=== PATIENT | male | born 1955 | race Caucasian/White ===

== ENCOUNTER 2017-05-04 10:25 | Inpatient (IN) | payer OTHER ==
[~2017-05-04] VITALS: Ht 182.9 cm; Wt 120.5 kg
[~2017-05-04 10:25] MED LIST: AMLODIPINE BES2.5 M1; ASPIR 8181 MG; BENAZEPRIL10 M1; GLUCOPHAGE1000 MG; LANTUS SOLOS100 U/M1; METP PO; NORVASC2.5 MG PO; PRILOSEC2.5 MG/Pa1 PO
[2017-05-04 11:06] LABS: BASOPHIL % 0.4 % (0-2); PLATELET COUNT 210 x10^3mcL (130-400); RED CELL DISTRIBUTION WIDTH 14.4 % (11.5-14.5)
[2017-05-04 11:14] LABS: CALCIUM 9.3 mg/dL (8.5-10.1); CARBON DIOXIDE 34.3 mmol/L (21-32); CHLORIDE SERUM 102 mmol/L (98-107); CREATININE SERUM 1.1 mg/dL (0.7-1.3); GFR1 > 60 mL/min; GLUCOSE SERUM 167 mg/dL (74-106); POTASSIUM SERUM 3.8 mmol/L (3.5-5.1); SODIUM SERUM 140 mmol/L (136-145)
[2017-05-04 11:19] LABS: ALBUMIN 3.6 g/dL (3.4-5.0); ALKALINE PHOSPHATASE 61 U/L (46-116); ALT/SGPT 43 U/L (16-63); AST/SGOT 24 U/L (15-37); BILIRUBIN TOTAL 0.38 mg/dL (0.20-1.00); TOTAL PROTEIN, SERUM 6.6 g/dL (6.4-8.2)
[2017-05-04] MEDS ORDERED: LANTUS SOLOS100 U/M1 SQ (12:02)
[2017-05-04] MEDS ORDERED: GLU500 PO (12:02)
[2017-05-04] MEDS ORDERED: NOVI SQ (12:03)
[2017-05-04] MEDS ORDERED: LOTREL1 CA3 PO (12:03)
[2017-05-04] MEDS ORDERED: GOOD SENSE ASPI81 M3 PO (12:03)
[2017-05-04 12:46] LABS: CHOLESTEROL/HDL RATIO 4.6; MAGNESIUM 1.9 mg/dL (1.8-2.4); PHOSPHOROUS 4.5 mg/dL (2.5-4.9)
[2017-05-04 12:48] LABS: T3 TOTAL 0.98 ng/mL
[2017-05-04 12:55] LABS: FREE T4 0.96 ng/dL (0.76-1.46); FREE THYROXINE INDEX 2.8 ug/dL (1.4-4.5); T4(THYROXINE) 7.7 ug/dL (4.7-13.3)
[2017-05-04 13:20] VITALS: BP 147/76
[2017-05-04 14:22] VITALS: Ht 182.9 cm; Wt 120.5 kg
[2017-05-04 16:42] VITALS: BP 133/80
[2017-05-04 17:59] VITALS: BP 142/81
[2017-05-04 19:11] LABS: microscopic required? NO
[2017-05-04 19:47] LABS: urine erythrocyte NEGATIVE (NEGATIVE)
[2017-05-04 20:00] VITALS: BP 130/85
[2017-05-04 20:26] LABS: AMPHETAMINE QUAL UR NONE DETECTED (NEG <=1000)
[2017-05-04 22:00] VITALS: BP 142/83
[2017-05-05] VITALS: BP 147/83
[2017-05-05 04:00] VITALS: BP 125/85
[2017-05-05 05:08] LABS: CARBON DIOXIDE 33.1 mmol/L (21-32); CHLORIDE SERUM 103 mmol/L (98-107); CREATININE SERUM 1.1 mg/dL (0.7-1.3); GFR1 > 60 mL/min; GLUCOSE SERUM 164 mg/dL (74-106); POTASSIUM SERUM 3.5 mmol/L (3.5-5.1); SODIUM SERUM 143 mmol/L (136-145)
[2017-05-05 05:18] LABS: BASOPHIL % 0.3 % (0-2); PLATELET COUNT 218 x10^3mcL (130-400); RED CELL DISTRIBUTION WIDTH 14.4 % (11.5-14.5)
[2017-05-05 07:31] VITALS: BP 127/82
[2017-05-05 11:06] VITALS: BP 123/66
[2017-05-05 17:45] VITALS: BP 152/82
[2017-05-05 23:47] VITALS: BP 147/87
[2017-05-06] VITALS (9 sets, daily range): BP systolic 102–154; BP diastolic 70–89
[2017-05-06 05:31] LABS: BASOPHIL % 0.3 % (0-2); PLATELET COUNT 186 x10^3mcL (130-400)
[2017-05-06 05:44] LABS: CALCIUM 8.5 mg/dL (8.5-10.1); CARBON DIOXIDE 33.4 mmol/L (21-32); CHLORIDE SERUM 101 mmol/L (98-107); GFR1 > 60 mL/min; GLUCOSE SERUM 219 mg/dL (74-106); MAGNESIUM 1.7 mg/dL (1.8-2.4); POTASSIUM SERUM 3.4 mmol/L (3.5-5.1); SODIUM SERUM 134 mmol/L (136-145)
[2017-05-07] VITALS (7 sets, daily range): BP systolic 95–146; BP diastolic 63–85
[2017-05-07 05:54] LABS: CALCIUM 8.8 mg/dL (8.5-10.1); CARBON DIOXIDE 31.6 mmol/L (21-32); CHLORIDE SERUM 103 mmol/L (98-107); GFR1 > 60 mL/min; GLUCOSE SERUM 167 mg/dL (74-106); MAGNESIUM 2.1 mg/dL (1.8-2.4); PHOSPHOROUS 3.6 mg/dL (2.5-4.9); POTASSIUM SERUM 3.7 mmol/L (3.5-5.1); SODIUM SERUM 139 mmol/L (136-145)
[2017-05-07 05:58] LABS: BASOPHIL % 0.2 % (0-2); PLATELET COUNT 193 x10^3mcL (130-400)
[2017-05-07 06:01] LABS: RED CELL DISTRIBUTION WIDTH 14.7 % (11.5-14.5)
[2017-05-08 03:43] VITALS: BP 137/67
[2017-05-08 06:15] LABS: BASOPHIL % 0.3 % (0-2); PLATELET COUNT 237 x10^3mcL (130-400); RED CELL DISTRIBUTION WIDTH 14.4 % (11.5-14.5)
[2017-05-08 06:17] LABS: CALCIUM 8.6 mg/dL (8.5-10.1); CARBON DIOXIDE 30.5 mmol/L (21-32); CHLORIDE SERUM 101 mmol/L (98-107); CREATININE SERUM 1.1 mg/dL (0.7-1.3); GFR1 > 60 mL/min; GLUCOSE SERUM 132 mg/dL (74-106); PHOSPHOROUS 3.6 mg/dL (2.5-4.9); POTASSIUM SERUM 3.4 mmol/L (3.5-5.1); SODIUM SERUM 139 mmol/L (136-145)
[2017-05-08 07:30] VITALS: BP 150/72
[2017-05-08 12:00] VITALS: BP 160/88
[2017-05-08 16:00] VITALS: BP 142/116
[2017-05-08 20:45] VITALS: BP 146/88
[2017-05-09] VITALS (11 sets, daily range): BP systolic 108–147; BP diastolic 73–100
[2017-05-09 06:15] LABS: BASOPHIL % 0.3 % (0-2); PLATELET COUNT 236 x10^3mcL (130-400); RED CELL DISTRIBUTION WIDTH 14.2 % (11.5-14.5)
[2017-05-09 06:52] LABS: CALCIUM 8.7 mg/dL (8.5-10.1); CARBON DIOXIDE 32.7 mmol/L (21-32); CHLORIDE SERUM 102 mmol/L (98-107); CREATININE SERUM 0.9 mg/dL (0.7-1.3); GFR1 > 60 mL/min; GLUCOSE SERUM 121 mg/dL (74-106); MAGNESIUM 1.8 mg/dL (1.8-2.4); PHOSPHOROUS 3.5 mg/dL (2.5-4.9); POTASSIUM SERUM 3.6 mmol/L (3.5-5.1); SODIUM SERUM 141 mmol/L (136-145)
[2017-05-10] MEDS ORDERED: DILTIAZEM HCL120 M2 PO (05:42)
[2017-05-10] MEDS ORDERED: AMIODARONE HCL200 MG PO ×2 (05:42→05:47)
[2017-05-10] MEDS ORDERED: METOPROLOL SUC100 M2 PO (05:44)
[2017-05-10] MEDS ORDERED: LOT20 PO (05:46)
[2017-05-10] MEDS ORDERED: COUGH100 MG/5 M PO (05:46)
[2017-05-10] MEDS ORDERED: LAC PO (05:47)
[2017-05-10 05:49] VITALS: BP 137/77
[2017-05-10 05:55] LABS: BASOPHIL % 0.5 % (0-2); PLATELET COUNT 251 x10^3mcL (130-400); RED CELL DISTRIBUTION WIDTH 14.3 % (11.5-14.5)
[2017-05-10 06:18] LABS: CALCIUM 8.6 mg/dL (8.5-10.1); CARBON DIOXIDE 34.1 mmol/L (21-32); CHLORIDE SERUM 101 mmol/L (98-107); CREATININE SERUM 1.1 mg/dL (0.7-1.3); GFR1 > 60 mL/min; GLUCOSE SERUM 148 mg/dL (74-106); MAGNESIUM 2.1 mg/dL (1.8-2.4); POTASSIUM SERUM 3.5 mmol/L (3.5-5.1); SODIUM SERUM 141 mmol/L (136-145)
[2017-05-10] MEDS ORDERED: AUGMENTIN 875-1 EACH PO (06:30)
[2017-05-10] MEDS ORDERED: XARELTO20 M1 PO (09:55)
[2017-05-10 10:01] VITALS: BP 131/54
[2017-05-10 11:03] VITALS: BP 131/54
[2017-05-10 14:30] VITALS: BP 142/78
[2017-05-10 18:07] VITALS: BP 150/77
[2017-05-10 19:56] VITALS: BP 155/80
[2017-05-10] MEDS ORDERED: DILTIAZEM30 M1 PO (20:18)
== END 2017-05-10 20:44 | disposition home or self-care (01) | DRG 177 ==
LOC: ED 10:25 → DU 12:08 → IC 12:08 → DU 05-06 09:27 → IC 05-06 23:07 → DU 05-08 20:25
PROVIDERS: Family Medicine; Family Medicine Sports Medicine; ADMIT Student in an Organized Health Care Education/Training Program
PROC: 5A2204Z Restoration of Cardiac Rhythm, Single (ICD-10-PCS; principal; 2017-05-04)
PROC: 4A02XFZ Measurement of Cardiac Rhythm, External Approach (ICD-10-PCS; 2017-05-04)
DX: J69.0 Pneumonitis due to inhalation of food and vomit (principal); J96.01 Acute respiratory failure with hypoxia; N17.0 Acute kidney failure with tubular necrosis; I50.43 Acute on chronic combined systolic (congestive) and diastolic (congestive) heart failure; I13.0 Hypertensive heart and chronic kidney disease with heart failure and stage 1 through stage 4 chronic kidney disease, or unspecified chronic kidney disease; E87.1 Hypo-osmolality and hyponatremia; Z79.84 Long term (current) use of oral hypoglycemic drugs; Z90.49 Acquired absence of other specified parts of digestive tract; E11.319 Type 2 diabetes mellitus with unspecified diabetic retinopathy without macular edema; Z79.82 Long term (current) use of aspirin; Z80.9 Family history of malignant neoplasm, unspecified; Z82.49 Family history of ischemic heart disease and other diseases of the circulatory system; E11.65 Type 2 diabetes mellitus with hyperglycemia; Z53.29 Procedure and treatment not carried out because of patient's decision for other reasons; N18.9 Chronic kidney disease, unspecified; E66.9 Obesity, unspecified; Z68.37 Body mass index [BMI] 37.0-37.9, adult; Z99.81 Dependence on supplemental oxygen; I48.0 Paroxysmal atrial fibrillation; E83.42 Hypomagnesemia
CPT/HCPCS: 83880; 84439; 94150; G0480; J0696; J1815; J1940; J1956; J2060; J2405; J2543; J3475; J3490; J7030; J7050; J7620; Q0092

== ENCOUNTER 2017-05-20 08:00 | Observation (INO) | payer OTHER ==
[~2017-05-20] VITALS: Ht 182.9 cm; Wt 117.0 kg
[~2017-05-20 08:00] MED LIST changes: +AMIODARONE HCL200 MG PO; +AUGMENTIN 875-1 EACH PO; +COUGH100 MG/5 M PO; +DILTIAZEM HCL120 M2 PO; +DILTIAZEM30 M1 PO; +GLU500 PO; +GOOD SENSE ASPI81 M3 PO; +LAC PO; +LANTUS SOLOS100 U/M1 SQ; +LOT20 PO; +LOTREL1 CA3 PO; +METOPROLOL SUC100 M2 PO; +NOVI SQ; +XARELTO20 M1 PO
[2017-05-20] MEDS ORDERED: LANTUS SOLOS100 U/M1 SC (08:46)
[2017-05-20] MEDS ORDERED: GLU850 PO (08:47)
[2017-05-20] MEDS ORDERED: COR200 PO (08:47)
[2017-05-20] MEDS ORDERED: CARDIZEM60 MG PO (08:47)
[2017-05-20] MEDS ORDERED: TOPROL XL100 MG PO (08:47)
[2017-05-20] MEDS ORDERED: LOT20 PO (08:48)
[2017-05-20] MEDS ORDERED: ATIVAN1 MG PO (08:48)
[2017-05-20] MEDS ORDERED: MAGNESIUM OXID400 MG PO (08:48)
[2017-05-20] MEDS ORDERED: XARELTO10 M1 PO (08:48)
[2017-05-20 08:49] LABS: BASOPHIL % 0.4 % (0-2); PLATELET COUNT 328 x10^3mcL (130-400)
[2017-05-20 08:57] LABS: CALCIUM 9.4 mg/dL (8.5-10.1); CARBON DIOXIDE 33.1 mmol/L (21-32); CHLORIDE SERUM 97 mmol/L (98-107); CREATININE SERUM 1.2 mg/dL (0.7-1.3); GFR1 > 60 mL/min; GLUCOSE SERUM 376 mg/dL (74-106); POTASSIUM SERUM 4.3 mmol/L (3.5-5.1); SODIUM SERUM 136 mmol/L (136-145)
[2017-05-20 09:04] LABS: ALBUMIN 3.4 g/dL (3.4-5.0); ALKALINE PHOSPHATASE 85 U/L (46-116); ALT/SGPT 38 U/L (16-63); AST/SGOT 29 U/L (15-37); BILIRUBIN TOTAL 0.35 mg/dL (0.20-1.00)
[2017-05-20 11:25] LABS: CHOLESTEROL/HDL RATIO 4.7; MAGNESIUM 1.7 mg/dL (1.8-2.4); PHOSPHOROUS 4.6 mg/dL (2.5-4.9)
[2017-05-20 11:26] VITALS: BP 123/78
[2017-05-20 11:37] LABS: FREE T4 1.03 ng/dL (0.76-1.46); FREE THYROXINE INDEX 3.4 ug/dL (1.4-4.5); T4(THYROXINE) 9.2 ug/dL (4.7-13.3)
[2017-05-20 11:49] LABS: T3 TOTAL 1.07 ng/mL
[2017-05-20 12:00] VITALS: BP 123/78
[2017-05-20 14:39] VITALS: BP 138/93
[2017-05-20 15:15] LABS: microscopic required? NO
[2017-05-20 15:28] LABS: urine erythrocyte NEGATIVE (NEGATIVE)
[2017-05-20 15:46] LABS: AMPHETAMINE QUAL UR NONE DETECTED (NEG <=1000)
[2017-05-20 18:28] VITALS: BP 128/74
[2017-05-20 21:29] VITALS: BP 113/77
[2017-05-21 05:19] VITALS: BP 158/86
[2017-05-21 07:11] LABS: BASOPHIL % 0.4 % (0-2); PLATELET COUNT 299 x10^3mcL (130-400)
[2017-05-21 07:30] LABS: CALCIUM 8.7 mg/dL (8.5-10.1); CARBON DIOXIDE 35.3 mmol/L (21-32); CHLORIDE SERUM 102 mmol/L (98-107); GFR1 > 60 mL/min; GLUCOSE SERUM 156 mg/dL (74-106); MAGNESIUM 1.8 mg/dL (1.8-2.4); PHOSPHOROUS 3.8 mg/dL (2.5-4.9); POTASSIUM SERUM 3.4 mmol/L (3.5-5.1); SODIUM SERUM 142 mmol/L (136-145)
[2017-05-21 09:56] VITALS: BP 167/78
[2017-05-21] MEDS ORDERED: ATORVASTATIN CA40 M1 PO (10:20)
[2017-05-21] MEDS ORDERED: IPRATROPIUM BROM3 M2 HHN (10:32)
[2017-05-21] MEDS ORDERED: TOPROL XL100 MG PO (10:34)
[2017-05-21] MEDS ORDERED: TOP50 PO (10:35)
[2017-05-21] MEDS ORDERED: LOT20 PO (10:59)
[2017-05-21 11:00] VITALS: BP 136/77
[2017-05-21] MEDS ORDERED: BACTROBAN21 ×2 (11:03→12:16)
[2017-05-21] MEDS ORDERED: HIB480 TP (11:04)
[2017-05-21] MEDS ORDERED: METFORMIN HCL500 MG (11:19)
[2017-05-21] MEDS ORDERED: AMIODARONE HCL200 MG PO (11:22)
[2017-05-21] MEDS ORDERED: CARDIZEM CD240 MG PO (11:24)
[2017-05-21 11:42] VITALS: BP 136/77
[2017-05-21] MEDS ORDERED: HIB480 TOP (12:16)
[2017-05-21] MEDS ORDERED: POTASSIUM CHLO20 ME4 PO (16:32)
== END 2017-05-21 13:14 | disposition home or self-care (01) | DRG 308 ==
LOC: ED 08:00 → DU 09:34
PROVIDERS: Emergency Medicine; ADMIT Family Medicine
DX: I48.0 Paroxysmal atrial fibrillation (principal); N17.0 Acute kidney failure with tubular necrosis; E44.1 Mild protein-calorie malnutrition; I11.9 Hypertensive heart disease without heart failure; M94.0 Chondrocostal junction syndrome [Tietze]; I08.3 Combined rheumatic disorders of mitral, aortic and tricuspid valves; E11.65 Type 2 diabetes mellitus with hyperglycemia; E83.42 Hypomagnesemia; G47.33 Obstructive sleep apnea (adult) (pediatric); E03.9 Hypothyroidism, unspecified; E78.5 Hyperlipidemia, unspecified; E66.9 Obesity, unspecified; Z68.34 Body mass index [BMI] 34.0-34.9, adult; Z87.891 Personal history of nicotine dependence; Z79.4 Long term (current) use of insulin; Z79.01 Long term (current) use of anticoagulants; Z79.84 Long term (current) use of oral hypoglycemic drugs; Z91.19 Patient's noncompliance with other medical treatment and regimen
CPT/HCPCS: 83880; 84439; 94150; G0378; G0480; J1815; J3475; J3490; J7030; J7040; Q0092

== ENCOUNTER 2017-05-27 23:35 | Emergency (ER) | payer OTHER ==
[~2017-05-27] VITALS: Ht 182.9 cm; Wt 117.9 kg
[~2017-05-27 23:35] MED LIST changes: +ATIVAN1 MG PO; +ATORVASTATIN CA40 M1 PO; +BACTROBAN21; +CARDIZEM CD240 MG PO; +CARDIZEM60 MG PO; +COR200 PO; +GLU850 PO; +HIB480 TOP; +HIB480 TP; +IPRATROPIUM BROM3 M2 HHN; +LANTUS SOLOS100 U/M1 SC; +MAGNESIUM OXID400 MG PO; +METFORMIN HCL500 MG; +POTASSIUM CHLO20 ME4 PO; +TOP50 PO; +TOPROL XL100 MG PO; +XARELTO10 M1 PO
[2017-05-28 01:28] LABS: BASOPHIL % 0.2 % (0-2); PLATELET COUNT 237 x10^3mcL (130-400)
[2017-05-28 01:37] LABS: CALCIUM 9.5 mg/dL (8.5-10.1); CARBON DIOXIDE 33.1 mmol/L (21-32); CHLORIDE SERUM 104 mmol/L (98-107); CREATININE SERUM 1.2 mg/dL (0.7-1.3); GFR1 > 60 mL/min; GLUCOSE SERUM 100 mg/dL (74-106); POTASSIUM SERUM 3.7 mmol/L (3.5-5.1); RED CELL DISTRIBUTION WIDTH 14.6 % (11.5-14.5); SODIUM SERUM 143 mmol/L (136-145)
[2017-05-28 02:46] VITALS: BP 159/86
== END 2017-05-28 02:46 | disposition home or self-care (01) ==
LOC: ED 23:35
PROVIDERS: Emergency Medicine
DX: R60.9 Edema, unspecified (principal); E11.9 Type 2 diabetes mellitus without complications; I10 Essential (primary) hypertension; Z79.84 Long term (current) use of oral hypoglycemic drugs
CPT/HCPCS: 36415; 83880

== ENCOUNTER 2017-06-22 19:55 | Inpatient (IN) | payer OTHER ==
[~2017-06-22] VITALS: Ht 182.9 cm; Wt 119.9 kg
[2017-06-22] MEDS ORDERED: DILTIAZEM HCL240 MG PO (20:28)
[2017-06-22 20:44] LABS: BASOPHIL % 0.6 % (0-2); PLATELET COUNT 273 x10^3mcL (130-400)
[2017-06-22 21:14] LABS: ALBUMIN 3.6 g/dL (3.4-5.0); ALKALINE PHOSPHATASE 74 U/L (46-116); ALT/SGPT 28 U/L (16-63); AST/SGOT 8 U/L (15-37); BILIRUBIN TOTAL 0.18 mg/dL (0.20-1.00); CALCIUM 9.9 mg/dL (8.5-10.1); CARBON DIOXIDE 31.1 mmol/L (21-32); CHLORIDE SERUM 102 mmol/L (98-107); CREATININE SERUM 1.1 mg/dL (0.7-1.3); GFR1 > 60 mL/min; GLUCOSE SERUM 62 mg/dL (74-106); SODIUM SERUM 143 mmol/L (136-145); TOTAL PROTEIN, SERUM 7.4 g/dL (6.4-8.2)
[2017-06-22 21:20] LABS: POTASSIUM SERUM 2.9 mmol/L (3.5-5.1)
[2017-06-22 22:47] LABS: T3 TOTAL 1.15 ng/mL
[2017-06-22 22:58] LABS: CHOLESTEROL/HDL RATIO 5.4; MAGNESIUM 2.1 mg/dL (1.8-2.4)
[2017-06-22 23:06] LABS: FREE T4 1.07 ng/dL (0.76-1.46); FREE THYROXINE INDEX 3.5 ug/dL (1.4-4.5); T4(THYROXINE) 9.5 ug/dL (4.7-13.3)
[2017-06-22 23:21] VITALS: BP 178/100
[2017-06-23] VITALS (7 sets, daily range): BP systolic 137–165; BP diastolic 70–84
[2017-06-23 00:19] LABS: CARBON DIOXIDE 34.4 mmol/L (21-32); CHLORIDE SERUM 103 mmol/L (98-107); CREATININE SERUM 1.1 mg/dL (0.7-1.3); GFR1 > 60 mL/min; GLUCOSE SERUM 110 mg/dL (74-106); POTASSIUM SERUM 3.1 mmol/L (3.5-5.1); SODIUM SERUM 142 mmol/L (136-145)
[2017-06-23 04:30] LABS: BASOPHIL % 0.6 % (0-2); PLATELET COUNT 236 x10^3mcL (130-400)
[2017-06-23 04:53] LABS: CALCIUM 8.8 mg/dL (8.5-10.1); CARBON DIOXIDE 34.7 mmol/L (21-32); CHLORIDE SERUM 105 mmol/L (98-107); GFR1 > 60 mL/min; GLUCOSE SERUM 155 mg/dL (74-106); MAGNESIUM 2.2 mg/dL (1.8-2.4); PHOSPHOROUS 5.4 mg/dL (2.5-4.9); POTASSIUM SERUM 3.4 mmol/L (3.5-5.1); SODIUM SERUM 142 mmol/L (136-145)
[2017-06-23 07:57] LABS: microscopic required? NO
[2017-06-23 08:27] LABS: urine erythrocyte NEGATIVE (NEGATIVE)
[2017-06-24 06:01] VITALS: BP 156/82
[2017-06-24 06:14] LABS: BASOPHIL % 0.5 % (0-2); PLATELET COUNT 232 x10^3mcL (130-400)
[2017-06-24 06:17] LABS: RED CELL DISTRIBUTION WIDTH 15.3 % (11.5-14.5)
[2017-06-24 06:28] LABS: CALCIUM 8.5 mg/dL (8.5-10.1); CARBON DIOXIDE 33.9 mmol/L (21-32); CHLORIDE SERUM 106 mmol/L (98-107); CREATININE SERUM 0.9 mg/dL (0.7-1.3); GFR1 > 60 mL/min; GLUCOSE SERUM 131 mg/dL (74-106); POTASSIUM SERUM 3.6 mmol/L (3.5-5.1); SODIUM SERUM 143 mmol/L (136-145)
[2017-06-24] MEDS ORDERED: LOT20 PO (08:53)
[2017-06-24] MEDS ORDERED: DILTIAZEM HCL120 M2 PO (08:57)
[2017-06-24] MEDS ORDERED: AMIODARONE HCL200 MG PO (08:57)
[2017-06-24] MEDS ORDERED: METOPROLOL SUCC50 M2 PO (08:57)
[2017-06-24] MEDS ORDERED: POTASSIUM CHLO20 ME4 PO (09:17)
[2017-06-24 10:09] VITALS: BP 156/82
== END 2017-06-24 10:41 | disposition home or self-care (01) | DRG 205 ==
LOC: ED 19:55 → DU 21:45
PROVIDERS: Emergency Medicine; ADMIT Family Medicine
DX: M94.0 Chondrocostal junction syndrome [Tietze] (principal); N17.0 Acute kidney failure with tubular necrosis; Z68.35 Body mass index [BMI] 35.0-35.9, adult; I50.9 Heart failure, unspecified; I11.0 Hypertensive heart disease with heart failure; E87.6 Hypokalemia; E11.319 Type 2 diabetes mellitus with unspecified diabetic retinopathy without macular edema; E11.42 Type 2 diabetes mellitus with diabetic polyneuropathy; I48.0 Paroxysmal atrial fibrillation; G90.8 Other disorders of autonomic nervous system; I16.0 Hypertensive urgency; E66.9 Obesity, unspecified; I08.3 Combined rheumatic disorders of mitral, aortic and tricuspid valves; E02 Subclinical iodine-deficiency hypothyroidism; G47.33 Obstructive sleep apnea (adult) (pediatric); F41.9 Anxiety disorder, unspecified; E11.65 Type 2 diabetes mellitus with hyperglycemia; Z90.49 Acquired absence of other specified parts of digestive tract; Z82.49 Family history of ischemic heart disease and other diseases of the circulatory system; Z80.9 Family history of malignant neoplasm, unspecified; Z91.14 Patient's other noncompliance with medication regimen
CPT/HCPCS: 83880; 84439; J1815; J1940; J3480; J7030; J7040; Q0092

== ENCOUNTER 2017-06-24 23:24 | Inpatient (IN) | payer OTHER ==
[~2017-06-24] VITALS: Ht 182.9 cm; Wt 72.6 kg
[~2017-06-24 23:24] MED LIST changes: +DILTIAZEM HCL240 MG PO; +METOPROLOL SUCC50 M2 PO
[2017-06-25] VITALS (8 sets, daily range): BP systolic 154–186; BP diastolic 81–106
[2017-06-25 00:15] LABS: UA SPECIFIC GRAVITY <=1.005 (1.005-1.035); microscopic required? YES; urine erythrocyte TRACE (NEGATIVE)
[2017-06-25 00:21] LABS: BASOPHIL % 0.6 % (0-2); PLATELET COUNT 263 x10^3mcL (130-400)
[2017-06-25 00:22] LABS: AMPHETAMINE QUAL UR NONE DETECTED (NEG <=1000)
[2017-06-25 00:25] LABS: CALCIUM 9.5 mg/dL (8.5-10.1); CARBON DIOXIDE 31.2 mmol/L (21-32); CHLORIDE SERUM 102 mmol/L (98-107); CREATININE SERUM 1.2 mg/dL (0.7-1.3); GFR1 > 60 mL/min; GLUCOSE SERUM 120 mg/dL (74-106); POTASSIUM SERUM 3.2 mmol/L (3.5-5.1); SODIUM SERUM 141 mmol/L (136-145)
[2017-06-25 00:27] LABS: RED CELL DISTRIBUTION WIDTH 14.8 % (11.5-14.5)
[2017-06-25 00:29] LABS: ALBUMIN 3.6 g/dL (3.4-5.0); ALKALINE PHOSPHATASE 75 U/L (46-116); ALT/SGPT 38 U/L (16-63); AST/SGOT 23 U/L (15-37); BILIRUBIN TOTAL 0.4 mg/dL (0.20-1.00); TOTAL PROTEIN, SERUM 7.7 g/dL (6.4-8.2)
[2017-06-25 03:23] LABS: T3 TOTAL 1.14 ng/mL
[2017-06-25 03:27] LABS: FREE T4 1.04 ng/dL (0.76-1.46); T4(THYROXINE) 8.9 ug/dL (4.7-13.3)
[2017-06-25 03:50] LABS: CHOLESTEROL/HDL RATIO 4.8
[2017-06-25 06:33] LABS: CALCIUM 9.6 mg/dL (8.5-10.1); CARBON DIOXIDE 29.5 mmol/L (21-32); CHLORIDE SERUM 104 mmol/L (98-107); CREATININE SERUM 0.9 mg/dL (0.7-1.3); GFR1 > 60 mL/min; GLUCOSE SERUM 142 mg/dL (74-106); MAGNESIUM 2.1 mg/dL (1.8-2.4); SODIUM SERUM 143 mmol/L (136-145)
[2017-06-25 06:37] LABS: POTASSIUM SERUM 2.9 mmol/L (3.5-5.1)
[2017-06-25 06:46] LABS: BASOPHIL % 0.6 % (0-2); PLATELET COUNT 243 x10^3mcL (130-400); RED CELL DISTRIBUTION WIDTH 15.1 % (11.5-14.5)
[2017-06-26 04:08] VITALS: BP 161/88
[2017-06-26 05:48] VITALS: BP 145/66
[2017-06-26 06:16] LABS: BASOPHIL % 0.4 % (0-2); PLATELET COUNT 220 x10^3mcL (130-400)
[2017-06-26 06:45] LABS: CALCIUM 8.7 mg/dL (8.5-10.1); CARBON DIOXIDE 31.4 mmol/L (21-32); CHLORIDE SERUM 105 mmol/L (98-107); CREATININE SERUM 0.8 mg/dL (0.7-1.3); GFR1 > 60 mL/min; GLUCOSE SERUM 131 mg/dL (74-106); POTASSIUM SERUM 3.4 mmol/L (3.5-5.1); SODIUM SERUM 142 mmol/L (136-145)
[2017-06-26 06:46] LABS: RED CELL DISTRIBUTION WIDTH 14.7 % (11.5-14.5)
[2017-06-26 08:17] VITALS: BP 129/78
[2017-06-26] MEDS ORDERED: LOT20 PO (09:47)
[2017-06-26] MEDS ORDERED: ALD25 PO (09:59)
[2017-06-26] MEDS ORDERED: POTASSIUM CHLO20 ME4 PO (10:55)
[2017-06-26] MEDS ORDERED: CAT0.1 PO (11:28)
[2017-06-26 12:50] VITALS: BP 163/87
[2017-06-26 13:33] VITALS: BP 132/73
[2017-06-26 13:35] VITALS: BP 132/73
== END 2017-06-26 14:16 | disposition home or self-care (01) | DRG 205 ==
LOC: ED 23:24 → DU 06-25 01:50 → ED 06-25 02:32 → DU 06-25 03:05
PROVIDERS: Emergency Medicine; ADMIT Family Medicine
DX: M94.0 Chondrocostal junction syndrome [Tietze] (principal); N17.0 Acute kidney failure with tubular necrosis; J96.00 Acute respiratory failure, unspecified whether with hypoxia or hypercapnia; K21.9 Gastro-esophageal reflux disease without esophagitis; I48.91 Unspecified atrial fibrillation; G47.33 Obstructive sleep apnea (adult) (pediatric); R31.9 Hematuria, unspecified; E87.6 Hypokalemia; E11.319 Type 2 diabetes mellitus with unspecified diabetic retinopathy without macular edema; E02 Subclinical iodine-deficiency hypothyroidism; I08.3 Combined rheumatic disorders of mitral, aortic and tricuspid valves; I11.9 Hypertensive heart disease without heart failure; E66.9 Obesity, unspecified; F41.9 Anxiety disorder, unspecified; Z91.19 Patient's noncompliance with other medical treatment and regimen; Z90.49 Acquired absence of other specified parts of digestive tract; Z68.34 Body mass index [BMI] 34.0-34.9, adult; Z82.49 Family history of ischemic heart disease and other diseases of the circulatory system; Z80.9 Family history of malignant neoplasm, unspecified
CPT/HCPCS: 83880; 84439; J1815; J3480; J7030; J7620; Q0092; Q9967

== ENCOUNTER → 2017-07-03 | Outpatient (CLI) | payer OTHER ==
[~2017-07-03] MED LIST changes: +ALD25 PO; +CAT0.1 PO
[2017-07-03 09:49] LABS: CALCIUM 9.4 mg/dL (8.5-10.1); CARBON DIOXIDE 35.1 mmol/L (21-32); CREATININE SERUM 1.3 mg/dL (0.7-1.3); POTASSIUM SERUM 4.7 mmol/L (3.5-5.1)
== END | disposition home or self-care (01) ==
LOC: LB 09:11
PROVIDERS: Internal Medicine Cardiovascular Disease
DX: I10 Essential (primary) hypertension (principal)

== ENCOUNTER 2017-07-21 12:12 | Emergency (ER) | payer OTHER ==
[~2017-07-21] VITALS: Ht 182.9 cm; Wt 114.4 kg
[2017-07-21 12:15] VITALS: Ht 182.9 cm; Wt 114.4 kg
[2017-07-21 13:55] LABS: BASOPHIL % 0.6 % (0-2); PLATELET COUNT 231 x10^3mcL (130-400)
[2017-07-21 13:57] LABS: RED CELL DISTRIBUTION WIDTH 14.6 % (11.5-14.5)
[2017-07-21 14:04] LABS: CALCIUM 9.9 mg/dL (8.5-10.1); CARBON DIOXIDE 34.2 mmol/L (21-32); POTASSIUM SERUM 4.2 mmol/L (3.5-5.1)
[2017-07-21 14:09] LABS: ALBUMIN 3.8 g/dL (3.4-5.0); BILIRUBIN TOTAL 0.3 mg/dL (0.20-1.00); TOTAL PROTEIN, SERUM 7.5 g/dL (6.4-8.2)
[2017-07-21 15:35] VITALS: BP 119/73
== END 2017-07-21 15:35 | disposition home or self-care (01) ==
LOC: ED 12:12
PROVIDERS: Emergency Medicine
DX: M47.892 Other spondylosis, cervical region (principal); E11.22 Type 2 diabetes mellitus with diabetic chronic kidney disease; I12.9 Hypertensive chronic kidney disease with stage 1 through stage 4 chronic kidney disease, or unspecified chronic kidney disease; N18.4 Chronic kidney disease, stage 4 (severe); I45.2 Bifascicular block
CPT/HCPCS: 83880; J7030; J8597; Q0092

== ENCOUNTER → 2017-07-26 | Outpatient (CLI) | payer OTHER ==
[2017-07-26 10:32] LABS: CALCIUM 9.3 mg/dL (8.5-10.1); CARBON DIOXIDE 35.1 mmol/L (21-32); CHOLESTEROL/HDL RATIO 4.3; CREATININE SERUM 1.5 mg/dL (0.7-1.3); POTASSIUM SERUM 3.7 mmol/L (3.5-5.1)
== END | disposition home or self-care (01) ==
LOC: LB 09:00
PROVIDERS: Internal Medicine Cardiovascular Disease
DX: E11.9 Type 2 diabetes mellitus without complications (principal); I10 Essential (primary) hypertension

== ENCOUNTER → 2017-09-17 | Outpatient (CLI) | payer OTHER ==
[2017-09-17 08:35] LABS: CALCIUM 9.4 mg/dL (8.5-10.1); CHOLESTEROL/HDL RATIO 4.8; CREATININE SERUM 1.6 mg/dL (0.7-1.3); POTASSIUM SERUM 3.7 mmol/L (3.5-5.1)
== END | disposition home or self-care (01) ==
LOC: LB 07:48
PROVIDERS: Internal Medicine Cardiovascular Disease
DX: E11.9 Type 2 diabetes mellitus without complications (principal); E78.5 Hyperlipidemia, unspecified

== ENCOUNTER 2017-11-15 12:33 | Inpatient (IN) | payer OTHER ==
[~2017-11-15] VITALS: Ht 175.3 cm; Wt 117.2 kg
[~2017-11-15 12:33] MED LIST changes: -METFORMIN HCL500 MG; +METFORMIN HCL500 MG PO
[2017-11-15 12:38] VITALS: Ht 175.3 cm; Wt 117.2 kg
[2017-11-15] MEDS ORDERED: METFORMIN HCL850 MG PO (13:24)
[2017-11-15] MEDS ORDERED: NIFEDICAL XL30 MG PO (13:25)
[2017-11-15 14:25] LABS: BASOPHIL % 0.6 % (0-2); PLATELET COUNT 212 x10^3mcL (130-400); RED CELL DISTRIBUTION WIDTH 13.7 % (11.5-14.5)
[2017-11-15 14:33] LABS: CALCIUM 8.9 mg/dL (8.5-10.1); CARBON DIOXIDE 31.6 mmol/L (21-32); CHLORIDE SERUM 102 mmol/L (98-107); CREATININE SERUM 1.2 mg/dL (0.7-1.3); GFR1 > 60 mL/min; GLUCOSE SERUM 122 mg/dL (74-106); POTASSIUM SERUM 3.4 mmol/L (3.5-5.1); SODIUM SERUM 142 mmol/L (136-145)
[2017-11-15 14:37] LABS: ALBUMIN 3.6 g/dL (3.4-5.0); ALKALINE PHOSPHATASE 57 U/L (46-116); ALT/SGPT 38 U/L (16-63); AST/SGOT 26 U/L (15-37); BILIRUBIN TOTAL 0.3 mg/dL (0.20-1.00); TOTAL PROTEIN, SERUM 7.1 g/dL (6.4-8.2)
[2017-11-15 14:55] LABS: microscopic required? YES; urine erythrocyte NEGATIVE (NEGATIVE)
[2017-11-15 15:02] LABS: T3 TOTAL 0.82 ng/mL
[2017-11-15 15:04] LABS: CHOLESTEROL/HDL RATIO 4.6; MAGNESIUM 1.8 mg/dL (1.8-2.4); PHOSPHOROUS 2.6 mg/dL (2.5-4.9)
[2017-11-15 15:11] LABS: FREE T4 1.16 ng/dL (0.76-1.46); FREE THYROXINE INDEX 3.1 ug/dL (1.4-4.5); T4(THYROXINE) 9.2 ug/dL (4.7-13.3)
[2017-11-15 15:21] VITALS: BP 123/74
[2017-11-15 20:59] VITALS: BP 144/76
[2017-11-16] VITALS (10 sets, daily range): BP systolic 107–164; BP diastolic 59–87
[2017-11-16 06:42] LABS: BASOPHIL % 0.5 % (0-2); PLATELET COUNT 209 x10^3mcL (130-400); RED CELL DISTRIBUTION WIDTH 13.4 % (11.5-14.5)
[2017-11-16 06:48] LABS: CALCIUM 8.7 mg/dL (8.5-10.1); CARBON DIOXIDE 31.5 mmol/L (21-32); CHLORIDE SERUM 104 mmol/L (98-107); CREATININE SERUM 1.1 mg/dL (0.7-1.3); GFR1 > 60 mL/min; GLUCOSE SERUM 152 mg/dL (74-106); POTASSIUM SERUM 3.6 mmol/L (3.5-5.1); SODIUM SERUM 143 mmol/L (136-145)
[2017-11-17 05:42] VITALS: BP 171/83
[2017-11-17 06:07] LABS: BASOPHIL % 0.4 % (0-2); PLATELET COUNT 206 x10^3mcL (130-400); RED CELL DISTRIBUTION WIDTH 13.5 % (11.5-14.5)
[2017-11-17 07:05] LABS: CALCIUM 8.6 mg/dL (8.5-10.1); CARBON DIOXIDE 29.9 mmol/L (21-32); CHLORIDE SERUM 104 mmol/L (98-107); CREATININE SERUM 1.1 mg/dL (0.7-1.3); GFR1 > 60 mL/min; GLUCOSE SERUM 225 mg/dL (74-106); POTASSIUM SERUM 3.7 mmol/L (3.5-5.1); SODIUM SERUM 141 mmol/L (136-145)
[2017-11-17 09:51] VITALS: BP 161/88
[2017-11-17] MEDS ORDERED: METFORMIN HCL1000 MG PO (11:57)
[2017-11-17] MEDS ORDERED: ATORVASTATIN CA40 M1 PO (11:57)
[2017-11-17] MEDS ORDERED: NIFEDICAL XL30 MG PO (11:57)
[2017-11-17] MEDS ORDERED: GLYBURIDE2.5 MG PO (11:58)
[2017-11-17 13:26] VITALS: BP 161/88
== END 2017-11-17 13:55 | disposition home or self-care (01) | DRG 64 ==
LOC: ED 12:33 → DU 14:03
PROVIDERS: Emergency Medicine; Family Medicine
DX: I63.9 Cerebral infarction, unspecified (principal); N17.0 Acute kidney failure with tubular necrosis; G90.8 Other disorders of autonomic nervous system; I10 Essential (primary) hypertension; I48.91 Unspecified atrial fibrillation; E11.319 Type 2 diabetes mellitus with unspecified diabetic retinopathy without macular edema; E11.65 Type 2 diabetes mellitus with hyperglycemia; E87.6 Hypokalemia; E78.5 Hyperlipidemia, unspecified; T68.XXXA Hypothermia, initial encounter; D72.828 Other elevated white blood cell count; F43.9 Reaction to severe stress, unspecified; H35.30 Unspecified macular degeneration; Z82.49 Family history of ischemic heart disease and other diseases of the circulatory system; Z90.49 Acquired absence of other specified parts of digestive tract; Z80.9 Family history of malignant neoplasm, unspecified
CPT/HCPCS: 83880; 84439; 97110-GP; 97535-GP; J7030; Q0092; Q9967

== ENCOUNTER 2017-11-19 10:00 | Emergency (ER) | payer OTHER ==
[~2017-11-19] VITALS: Ht 182.9 cm; Wt 116.1 kg
[~2017-11-19 10:00] MED LIST changes: +GLYBURIDE2.5 MG PO; +METFORMIN HCL1000 MG PO; +METFORMIN HCL850 MG PO; +NIFEDICAL XL30 MG PO
[2017-11-19 10:08] VITALS: Ht 182.9 cm; Wt 116.1 kg
[2017-11-19 11:00] LABS: BASOPHIL % 0.4 % (0-2); PLATELET COUNT 234 x10^3mcL (130-400); RED CELL DISTRIBUTION WIDTH 13.3 % (11.5-14.5)
[2017-11-19 11:05] LABS: CALCIUM 9.2 mg/dL (8.5-10.1); CARBON DIOXIDE 33.7 mmol/L (21-32); CHLORIDE SERUM 103 mmol/L (98-107); CREATININE SERUM 1.1 mg/dL (0.7-1.3); GFR1 > 60 mL/min; GLUCOSE SERUM 67 mg/dL (74-106); POTASSIUM SERUM 3.4 mmol/L (3.5-5.1); SODIUM SERUM 142 mmol/L (136-145)
[2017-11-19 11:10] LABS: ALBUMIN 3.7 g/dL (3.4-5.0); ALKALINE PHOSPHATASE 61 U/L (46-116); ALT/SGPT 37 U/L (16-63); AST/SGOT 25 U/L (15-37); BILIRUBIN TOTAL 0.4 mg/dL (0.20-1.00); TOTAL PROTEIN, SERUM 7.2 g/dL (6.4-8.2)
[2017-11-19 12:54] LABS: CHOLESTEROL/HDL RATIO 4.1; PHOSPHOROUS 2.9 mg/dL (2.5-4.9)
[2017-11-19 12:58] LABS: T3 TOTAL 0.86 ng/mL
[2017-11-19 13:13] LABS: FREE T4 1.09 ng/dL (0.76-1.46); FREE THYROXINE INDEX 3.6 ug/dL (1.4-4.5); T4(THYROXINE) 10.3 ug/dL (4.7-13.3)
[2017-11-19 16:35] LABS: AMPHETAMINE QUAL UR NONE DETECTED (NEG <=1000)
[2017-11-19 18:44] VITALS: BP 150/75
== END 2017-11-19 18:44 | disposition home or self-care (01) ==
LOC: ED 10:00
PROVIDERS: Emergency Medicine; Family Medicine
DX: E16.2 Hypoglycemia, unspecified (principal); E87.6 Hypokalemia; I10 Essential (primary) hypertension; E11.9 Type 2 diabetes mellitus without complications
CPT/HCPCS: 83880; 84439; J3490; J7030; Q0092

== ENCOUNTER → 2018-01-20 | Outpatient (CLI) | payer OTHER ==
[2018-01-20 11:53] LABS: BASOPHIL % 0.5 % (0-2); PLATELET COUNT 229 x10^3mcL (130-400); RED CELL DISTRIBUTION WIDTH 14.1 % (11.5-14.5)
[2018-01-20 12:23] LABS: ALBUMIN 3.9 g/dL (3.4-5.0); ALKALINE PHOSPHATASE 68 U/L (46-116); ALT/SGPT 46 U/L (16-63); AST/SGOT 30 U/L (15-37); BILIRUBIN DIRECT 0.11 mg/dL (0.0-0.2); BILIRUBIN TOTAL 0.37 mg/dL (0.20-1.00); CALCIUM 9.7 mg/dL (8.5-10.1); CARBON DIOXIDE 33.2 mmol/L (21-32); CHLORIDE SERUM 101 mmol/L (98-107); CREATININE SERUM 1.3 mg/dL (0.7-1.3); FREE T4 1.05 ng/dL (0.76-1.46); GLUCOSE SERUM 116 mg/dL (74-106); HDL CHOLESTEROL 41 mg/dL (40-60); MAGNESIUM 1.8 mg/dL (1.8-2.4); POTASSIUM SERUM 3.7 mmol/L (3.5-5.1); SODIUM SERUM 141 mmol/L (136-145); TOTAL PROTEIN, SERUM 7.4 g/dL (6.4-8.2)
[2018-01-20 12:24] LABS: UA SPECIFIC GRAVITY <=1.005 (1.005-1.035); microscopic required? YES; urine erythrocyte NEGATIVE (NEGATIVE)
[2018-01-20 14:08] LABS: CHOLESTEROL 113 mg/dL (<200); CHOLESTEROL/HDL RATIO 2.8
[2018-01-20 14:09] LABS: TRIGLYCERIDES 85 mg/dL (<150)
== END | disposition home or self-care (01) ==
LOC: LB 11:14
PROVIDERS: Family Medicine
DX: I48.91 Unspecified atrial fibrillation (principal); I10 Essential (primary) hypertension
CPT/HCPCS: 84439

== ENCOUNTER → 2018-02-12 | Outpatient (CLI) | payer OTHER | END | disposition home or self-care (01) | LOC: RD 16:45 | DX: L08.9 Local infection of the skin and subcutaneous tissue, unspecified (principal) ==

== ENCOUNTER → 2018-04-01 | Outpatient (CLI) | payer OTHER | END | disposition home or self-care (01) | LOC: RD 11:18 | DX: S91.311A Laceration without foreign body, right foot, initial encounter (principal); W27.8XXA Contact with other nonpowered hand tool, initial encounter; Y93.H2 Activity, gardening and landscaping; Y92.9 Unspecified place or not applicable ==

== ENCOUNTER 2018-07-13 15:50 | Emergency (ER) | payer OTHER ==
[~2018-07-13] VITALS: Ht 188 cm; Wt 107.5 kg
[2018-07-13 16:01] VITALS: Ht 188 cm; Wt 107.5 kg
[2018-07-13 17:16] LABS: BASOPHIL % 0.3 % (0-2); PLATELET COUNT 220 x10^3mcL (130-400); RED CELL DISTRIBUTION WIDTH 14.2 % (11.5-14.5)
[2018-07-13 17:17] LABS: CALCIUM 9.6 mg/dL (8.5-10.1); CARBON DIOXIDE 28.3 mmol/L (21-32); CREATININE SERUM 1.4 mg/dL (0.7-1.3); POTASSIUM SERUM 3.6 mmol/L (3.5-5.1)
[2018-07-13 17:22] LABS: ALBUMIN 3.6 g/dL (3.4-5.0); BILIRUBIN TOTAL 0.3 mg/dL (0.20-1.00); TOTAL PROTEIN, SERUM 7.1 g/dL (6.4-8.2)
[2018-07-13 17:29] LABS: microscopic required? NO
[2018-07-13 17:43] LABS: UA SPECIFIC GRAVITY <=1.005 (1.005-1.035); urine erythrocyte NEGATIVE (NEGATIVE)
[2018-07-13 19:37] VITALS: BP 145/71
== END 2018-07-13 19:37 | disposition home or self-care (01) ==
LOC: ED 15:50
PROVIDERS: Emergency Medicine
DX: S90.121A Contusion of right lesser toe(s) without damage to nail, initial encounter (principal); S90.414A Abrasion, right lesser toe(s), initial encounter; S80.811A Abrasion, right lower leg, initial encounter; E11.65 Type 2 diabetes mellitus with hyperglycemia; I10 Essential (primary) hypertension; E11.9 Type 2 diabetes mellitus without complications; I48.91 Unspecified atrial fibrillation; Z90.89 Acquired absence of other organs; X58.XXXA Exposure to other specified factors, initial encounter; Y93.89 Activity, other specified; Y92.89 Other specified places as the place of occurrence of the external cause; Y99.8 Other external cause status
CPT/HCPCS: 36415; 82962; 90715; J7030; Q0092

== ENCOUNTER 2018-07-19 20:35 | Emergency (ER) | payer OTHER ==
[~2018-07-19] VITALS: Ht 182.9 cm; Wt 121.1 kg
[2018-07-19 20:48] VITALS: Ht 182.9 cm; Wt 121.1 kg
[2018-07-19 21:19] LABS: BASOPHIL % 0.6 % (0-2); PLATELET COUNT 255 x10^3mcL (130-400); RED CELL DISTRIBUTION WIDTH 13.1 % (11.5-14.5)
[2018-07-19 21:28] LABS: CALCIUM 8.9 mg/dL (8.5-10.1); CARBON DIOXIDE 29.5 mmol/L (21-32); CREATININE SERUM 1.3 mg/dL (0.7-1.3); POTASSIUM SERUM 3.4 mmol/L (3.5-5.1)
[2018-07-19 21:32] LABS: ALBUMIN 3.6 g/dL (3.4-5.0); BILIRUBIN TOTAL 0.29 mg/dL (0.20-1.00)
[2018-07-19 23:03] VITALS: BP 137/73
== END 2018-07-19 23:03 | disposition home or self-care (01) ==
LOC: ED 20:35
PROVIDERS: Emergency Medicine
DX: L03.116 Cellulitis of left lower limb (principal); I10 Essential (primary) hypertension; E11.9 Type 2 diabetes mellitus without complications; I48.91 Unspecified atrial fibrillation; Z98.890 Other specified postprocedural states; Z90.89 Acquired absence of other organs
CPT/HCPCS: J2270; J7030; Q0092

== ENCOUNTER 2018-08-02 18:18 | Emergency (ER) | payer OTHER ==
[~2018-08-02] VITALS: Ht 182.9 cm; Wt 73.6 kg
[2018-08-02 18:22] VITALS: Ht 182.9 cm; Wt 73.6 kg
[2018-08-02 20:49] LABS: BASOPHIL % 0.3 % (0-2); PLATELET COUNT 243 x10^3mcL (130-400); RED CELL DISTRIBUTION WIDTH 13.8 % (11.5-14.5)
[2018-08-02 21:27] LABS: CALCIUM 9.8 mg/dL (8.5-10.1); CARBON DIOXIDE 25.8 mmol/L (21-32); CREATININE SERUM 1.6 mg/dL (0.7-1.3); POTASSIUM SERUM 4.4 mmol/L (3.5-5.1)
[2018-08-02 21:32] LABS: ALBUMIN 3.8 g/dL (3.4-5.0); BILIRUBIN TOTAL 0.3 mg/dL (0.20-1.00); TOTAL PROTEIN, SERUM 7.5 g/dL (6.4-8.2)
[2018-08-02 23:28] VITALS: BP 143/81
== END 2018-08-02 23:28 | disposition home or self-care (01) ==
LOC: ED 18:18
PROVIDERS: Emergency Medicine
DX: T17.228A Food in pharynx causing other injury, initial encounter (principal); T18.128A Food in esophagus causing other injury, initial encounter; E86.0 Dehydration; I50.9 Heart failure, unspecified; E11.9 Type 2 diabetes mellitus without complications; E78.00 Pure hypercholesterolemia, unspecified; Z90.89 Acquired absence of other organs; Z98.890 Other specified postprocedural states; X58.XXXA Exposure to other specified factors, initial encounter; Y93.89 Activity, other specified; Y92.89 Other specified places as the place of occurrence of the external cause; Y99.8 Other external cause status
CPT/HCPCS: 82962; 83880; C9113; J1610; J1815; J2765; J7030; Q0092

== ENCOUNTER 2018-09-28 15:03 | Emergency (ER) | payer OTHER ==
[~2018-09-28] VITALS: Ht 182.9 cm; Wt 116.6 kg
[2018-09-28 15:18] VITALS: Ht 182.9 cm; Wt 116.6 kg
[2018-09-28 16:26] LABS: BASOPHIL % 0.4 % (0-2); PLATELET COUNT 250 x10^3mcL (130-400)
[2018-09-28 16:34] LABS: CALCIUM 9.5 mg/dL (8.5-10.1); CARBON DIOXIDE 31.7 mmol/L (21-32); CREATININE SERUM 1.5 mg/dL (0.7-1.3); POTASSIUM SERUM 3.8 mmol/L (3.5-5.1)
[2018-09-28 16:40] LABS: ALBUMIN 3.4 g/dL (3.4-5.0); BILIRUBIN TOTAL 0.28 mg/dL (0.20-1.00); TOTAL PROTEIN, SERUM 6.8 g/dL (6.4-8.2)
[2018-09-28 17:12] VITALS: BP 129/74
== END 2018-09-28 17:38 | disposition home or self-care (01) ==
LOC: ED 15:03
PROVIDERS: Emergency Medicine
DX: R10.10 Upper abdominal pain, unspecified (principal); R42 Dizziness and giddiness; R11.0 Nausea; M25.512 Pain in left shoulder; M25.511 Pain in right shoulder; I10 Essential (primary) hypertension; E11.9 Type 2 diabetes mellitus without complications; I48.91 Unspecified atrial fibrillation; Z90.89 Acquired absence of other organs; Z98.890 Other specified postprocedural states
CPT/HCPCS: 36415; 82962; 83880; Q0092

== ENCOUNTER 2018-10-22 16:01 | Emergency (ER) | payer OTHER ==
[~2018-10-22] VITALS: Ht 182.9 cm; Wt 113.9 kg
[2018-10-22 16:03] VITALS: Ht 182.9 cm; Wt 113.9 kg
[2018-10-22 17:09] LABS: BASOPHIL % 0.2 % (0-2); PLATELET COUNT 248 x10^3mcL (130-400); RED CELL DISTRIBUTION WIDTH 14.2 % (11.5-14.5)
[2018-10-22 17:19] LABS: CALCIUM 9.2 mg/dL (8.5-10.1); CARBON DIOXIDE 29.3 mmol/L (21-32); CHLORIDE SERUM 98 mmol/L (98-107); GFR1 > 60 mL/min; GLUCOSE SERUM 300 mg/dL (74-106); POTASSIUM SERUM 3.4 mmol/L (3.5-5.1); SODIUM SERUM 136 mmol/L (136-145)
[2018-10-22 17:31] LABS: ALBUMIN 3.2 g/dL (3.4-5.0); ALKALINE PHOSPHATASE 84 U/L (46-116); ALT/SGPT 22 U/L (16-63); AMYLASE 22 U/L (25-115); AST/SGOT 11 U/L (15-37); BILIRUBIN TOTAL 0.6 mg/dL (0.20-1.00); CHOLESTEROL 97 mg/dL (<200); HDL CHOLESTEROL 43 mg/dL (40-60); LIPASE 64 IU/L (73-393); T4(THYROXINE) 8.4 ug/dL (4.7-13.3); TOTAL PROTEIN, SERUM 7.5 g/dL (6.4-8.2)
[2018-10-22 17:41] LABS: UA SPECIFIC GRAVITY 1.015 (1.005-1.035); microscopic required? YES; urine erythrocyte TRACE (NEGATIVE)
[2018-10-22 19:39] VITALS: BP 155/80
== END 2018-10-22 19:39 | disposition home or self-care (01) ==
LOC: ED 16:01
PROVIDERS: Emergency Medicine
DX: J02.9 Acute pharyngitis, unspecified (principal); H68.102 Unspecified obstruction of Eustachian tube, left ear; I10 Essential (primary) hypertension; H11.32 Conjunctival hemorrhage, left eye; E11.319 Type 2 diabetes mellitus with unspecified diabetic retinopathy without macular edema; E66.9 Obesity, unspecified; Z68.34 Body mass index [BMI] 34.0-34.9, adult; Z90.89 Acquired absence of other organs; Z98.890 Other specified postprocedural states
CPT/HCPCS: 83880; 87804; J2930; J7613; J7644

== ENCOUNTER → 2019-01-13 | Outpatient (CLI) | payer OTHER ==
[2019-01-13 10:18] LABS: ALBUMIN 3.8 g/dL (3.4-5.0); BILIRUBIN TOTAL 0.47 mg/dL (0.20-1.00); CALCIUM 10.1 mg/dL (8.5-10.1); CARBON DIOXIDE 29.4 mmol/L (21-32); CREATININE SERUM 1.3 mg/dL (0.7-1.3); POTASSIUM SERUM 4.1 mmol/L (3.5-5.1); TOTAL PROTEIN, SERUM 7.5 g/dL (6.4-8.2)
[2019-01-13 10:19] LABS: CHOLESTEROL/HDL RATIO 3.1
[2019-01-13 11:06] LABS: BASOPHIL % 0.4 % (0-2); PLATELET COUNT 247 x10^3mcL (130-400); RED CELL DISTRIBUTION WIDTH 14.4 % (11.5-14.5)
[2019-01-14 08:11] LABS: microalbumin:creatinine ratio 163.3 (0.0-30.0)
== END | disposition home or self-care (01) ==
LOC: LB 09:41
DX: E11.8 Type 2 diabetes mellitus with unspecified complications (principal); I10 Essential (primary) hypertension

== ENCOUNTER 2019-03-07 23:25 | Emergency (ER) | payer OTHER ==
[~2019-03-07] VITALS: Ht 182.9 cm; Wt 124.7 kg
[2019-03-07 23:50] VITALS: Ht 182.9 cm; Wt 124.7 kg
[2019-03-08 00:30] LABS: BASOPHIL % 0.3 % (0-2); PLATELET COUNT 228 x10^3mcL (130-400); RED CELL DISTRIBUTION WIDTH 14.2 % (11.5-14.5)
[2019-03-08 00:46] LABS: ALBUMIN 3.7 g/dL (3.4-5.0); ALKALINE PHOSPHATASE 68 U/L (46-116); ALT/SGPT 32 U/L (16-63); AST/SGOT 17 U/L (15-37); BILIRUBIN TOTAL 0.2 mg/dL (0.20-1.00); CALCIUM 9.3 mg/dL (8.5-10.1); CARBON DIOXIDE 30.4 mmol/L (21-32); CHLORIDE SERUM 104 mmol/L (98-107); CREATININE SERUM 1.1 mg/dL (0.7-1.3); GFR1 > 60 mL/min; POTASSIUM SERUM 3.1 mmol/L (3.5-5.1); SODIUM SERUM 145 mmol/L (136-145); TOTAL PROTEIN, SERUM 6.7 g/dL (6.4-8.2)
[2019-03-08 00:52] LABS: GLUCOSE SERUM 52 mg/dL (74-106)
[2019-03-08 02:16] LABS: microscopic required? YES; urine erythrocyte NEGATIVE (NEGATIVE)
[2019-03-08 03:25] VITALS: BP 135/79
== END 2019-03-08 03:25 | disposition home or self-care (01) ==
LOC: ED 23:25
PROVIDERS: Emergency Medicine
DX: E87.6 Hypokalemia (principal); R60.0 Localized edema; R42 Dizziness and giddiness; E11.649 Type 2 diabetes mellitus with hypoglycemia without coma; I10 Essential (primary) hypertension; I48.91 Unspecified atrial fibrillation; Z98.890 Other specified postprocedural states
CPT/HCPCS: 36415; 83880

== ENCOUNTER → 2019-04-27 | Outpatient (CLI) | payer OTHER ==
[2019-04-27 08:46] LABS: BASOPHIL % 0.7 % (0-2); PLATELET COUNT 231 x10^3mcL (130-400); RED CELL DISTRIBUTION WIDTH 14.1 % (11.5-14.5)
[2019-04-27 08:58] LABS: ALBUMIN 3.8 g/dL (3.4-5.0); ALKALINE PHOSPHATASE 75 U/L (46-116); ALT/SGPT 32 U/L (16-63); AST/SGOT 21 U/L (15-37); CALCIUM 8.9 mg/dL (8.5-10.1); CARBON DIOXIDE 29.9 mmol/L (21-32); CHLORIDE SERUM 103 mmol/L (98-107); CREATININE SERUM 0.9 mg/dL (0.7-1.3); GFR1 > 60 mL/min; GLUCOSE SERUM 142 mg/dL (74-106); HDL CHOLESTEROL 37 mg/dL (40-60); POTASSIUM SERUM 3.5 mmol/L (3.5-5.1); SODIUM SERUM 143 mmol/L (136-145); TOTAL PROTEIN, SERUM 7.4 g/dL (6.4-8.2); TRIGLYCERIDES 74 mg/dL (<150)
[2019-04-27 09:00] LABS: CHOLESTEROL 98 mg/dL (<200); CHOLESTEROL/HDL RATIO 2.6
[2019-04-28 13:05] LABS: microalbumin:creatinine ratio 318.7 (0.0-30.0)
== END | disposition home or self-care (01) ==
LOC: LB 08:01
DX: E11.8 Type 2 diabetes mellitus with unspecified complications (principal); I10 Essential (primary) hypertension; N18.9 Chronic kidney disease, unspecified

== ENCOUNTER 2019-07-30 18:57 | Inpatient (IN) | payer OTHER ==
[~2019-07-30] VITALS: Ht 182.9 cm; Wt 116.0 kg
[2019-07-30 19:12] VITALS: Ht 182.9 cm; Wt 116.0 kg
--- NOTE | 2019-07-30 20:07 | NUR ---
DR KENT AT BEDSIDE FOR MSE.
--- NOTE | 2019-07-30 20:07 | NUR ---
REC'D A 64/M IN RM 12 WITH C/O GENERALIZED WEAKNESS SINCE 5 AM. PT REPORTS HR DECREASED TO 40BPM ON HIS PULSE OX. PT REPORTS DIZZINESS AND SOB. PT DENIES FEVER, N/V OR OD. HX OF AFIB HOWEVER NOT TAKING ANY BLOOD THINNER. PT AAOX4, CLEAR SPEECH, RESP EU, ON CM, IN NO ACUTE DISTRESS.
--- NOTE | 2019-07-30 20:09 | NUR ---
BOWEN AT BEDSIDE.
--- NOTE | 2019-07-30 20:23 | NUR ---
EMT MICKEY AT BEDSIDE FOR EKG.
--- NOTE | 2019-07-30 20:32 | NUR ---
ADMINISTERED 10MG CARDIZEM IVP FOR AFIB ON CM. PLEASE SEE EMAR.
[2019-07-30 20:33] LABS: BASOPHIL % 0.5 % (0-2); PLATELET COUNT 250 x10^3mcL (130-400); RED CELL DISTRIBUTION WIDTH 14.1 % (11.5-14.5)
[2019-07-30 20:45] LABS: CALCIUM 9.5 mg/dL (8.5-10.1); CARBON DIOXIDE 33.3 mmol/L (21-32); CREATININE SERUM 1.6 mg/dL (0.7-1.3); POTASSIUM SERUM 3.3 mmol/L (3.5-5.1)
[2019-07-30 20:47] LABS: ALBUMIN 3.5 g/dL (3.4-5.0); BILIRUBIN TOTAL 0.22 mg/dL (0.20-1.00); MAGNESIUM 2.5 mg/dL (1.8-2.4)
[2019-07-30 20:51] LABS: T3 TOTAL 1.15 ng/mL
[2019-07-30 21:10] LABS: FREE THYROXINE INDEX 2.6 ug/dL (1.4-4.5); T4(THYROXINE) 6.9 ug/dL (4.7-13.3)
--- NOTE | 2019-07-30 21:27 | NUR ---
ADMINISTERED ANOTHER 10MG CARDIZEM FOR AFIB, HR: 117, NOTED ON CM. PLEASE SEE EMAR.
[2019-07-30 21:53] LABS: FREE T4 1.02 ng/dL (0.76-1.46)
--- NOTE | 2019-07-30 22:05 | NUR ---
DR KENT AT BEDSIDE DISCUSSING POC WITH THE PT .
--- NOTE | 2019-07-30 22:25 | NUR ---
ADMINISTERED ANOTHER 10MG CARDIZEM IVP AND 30MG CARDIZEM PO. PLEASE SEE EMAR. HR: 119, AFIB ON CM.
--- NOTE | 2019-07-30 22:27 | NUR ---
AFTER ADMINISTERING 3RD CARDIZEM 10MG IVP & 30MG CARDIZEM PO, PT BECAME CONFUSED AND STATED HE "FEELS WEIRD". PT STATED HIS HOWEVER UNABLE TO VERBALIZED PLACE OR REASON FOR VISIT. BOWEN NOTED PT IS NOT MAKING ANY SENSE, WORD GAMA NOTED. PT STS "I FEEL MY EYES AND EARS ARE SOMEWHERE ELSE". NO FACIAL DROOP OR WEAKNESS NOTED TO EXTREMITIES. DR KENT MADE AWARE.
--- NOTE | 2019-07-30 22:30 | NUR ---
DR KENT AT BEDSIDE FOR REASSESSMENT. PT ABLE TO STATE DAUGTHER'S NAME QUICKLY, HOWEVER UNABLE TO NAME 'S NAME. PER PT, DR KENT, CODE BRAIN FOR CT TO R/O STROKE.
--- NOTE | 2019-07-30 22:37 | NUR ---
CODE BRAIN: PT TAKEN TO CT VIA [facility].
[2019-07-30] MEDS ORDERED: BENAZEPRIL HYDR40 M1 (22:48)
[2019-07-30] MEDS ORDERED: LASIX20 MG (22:48)
[2019-07-30] MEDS ORDERED: ASPIRIN ADULT L81 M5 (22:48)
[2019-07-30] MEDS ORDERED: METOPROLOL SUCC50 M2 (22:48)
[2019-07-30] MEDS ORDERED: MAGNESIUM OXID400 MG (22:48)
--- NOTE | 2019-07-30 22:52 | NUR ---
PT RETURNED FROM CT TO RM 12 WITHOUT INCIDENT.
--- NOTE | 2019-07-30 23:13 | NUR ---
CONFUSION/STROKE LIKE SYMPTOMS- RESOLVED. DR KENT MADE AWARE.
--- NOTE | 2019-07-30 23:15 | NUR ---
PT AAOX4, CLEAR SPEECH, RESP EU, IN NO ACUTE DISTRESS. PT RETURNED TO BASELINE PER MYSELF AND PT'S DAUGTHER.
--- NOTE | 2019-07-30 23:16 | NUR ---
PT SPEAKING TO TELE NEUROLOGY.
[2019-07-31 00:30] LABS: PHOSPHOROUS 2.7 mg/dL (2.5-4.9)
[2019-07-31 00:31] LABS: CHOLESTEROL/HDL RATIO 3.7
--- NOTE | 2019-07-31 00:42 | NUR ---
INITIATED HEPARIN BOLUS IVP AND HEPARIN @ 14ML/HR. PLEASE SEE EMAR .
--- NOTE | 2019-07-31 00:52 | NUR ---
REPORT GIVEN TO TONYA HOGAN TO ASSUME CARE OF THE PT.
--- NOTE | 2019-07-31 02:30 | NUR ---
PT RECIEVED FROM ED VIA [facility]. PT AMBULATED TO BED, NO DISTRESS NOTED. PT BREATHING E/U ON RA AT THIS TIME. DENEIS PAIN OR DISCOMFORT. HEP DRIP RUNNING AT THIS TIME, 1380 ML. NEXT PTT SCHEDUELED FOR 0630. WILL CONTNUE TO MONITOR.
[2019-07-31 03:43] VITALS: BP 136/83
[2019-07-31 05:06] VITALS: BP 118/84
--- NOTE | 2019-07-31 06:46 | NUR ---
PT RESTING IN BED AT THIS TIME. DENIES PAIN OR DISCOMFORT. BREATHING E/U ON RA. NO SIGNS OF ACUTE DISTRESS AT THIS TIME. BED AT LOWEST POSITION. CALL LIGHT WITHIN REACH. WILL CONTINUE TO MONITOR.
--- NOTE | 2019-07-31 07:30 | NUR ---
PATIENT STATES HEADACHE, MINOR NUMBNESS AND TINGLING IN LEFT CHEEK, AND EYE PAIN. PATIENT DENIES ANY FACIAL DROOP, SLUR IN SPEECH, OR OTHER NEUROLOGICAL SYMPTOMS. GAVE NORCO FOR PAIN. NOTIFIED MD OF PATIENT'S CURRENT STATUS. DR. BARNES ASSESSED PATIENT AND HAS ORDERED ULTRASOUND AND CT. WILL CONTINUE TO MONITOR PATIENT.
--- NOTE | 2019-07-31 07:30 | NUR ---
A&OX4, FORGETFUL AT TIMES. TELE #29 AFIB, DENIES CHEST PAIN. PERIPHERAL PULSES PALPABLE W/ NO SIGNS OF EDEMA. +1 BLE. LUNG SOUNDS CTA BILATERALLY, ON RA, O2 SAT 96%. NORMOACTIVE BSX4, VOIDS WELL. GENERALIZED WEAKNESS. AMBULATOY. SKIN IS INTACT. DENIES PAIN OR DISCOMFORT AT THIS TIME. WILL CONTINUE TO MONITOR
[2019-07-31 07:33] LABS: BASOPHIL % 0.4 % (0-2); PLATELET COUNT 226 x10^3mcL (130-400); RED CELL DISTRIBUTION WIDTH 14.4 % (11.5-14.5)
[2019-07-31 07:54] LABS: CALCIUM 9.1 mg/dL (8.5-10.1); CARBON DIOXIDE 33.7 mmol/L (21-32); CREATININE SERUM 1.4 mg/dL (0.7-1.3); MAGNESIUM 2.4 mg/dL (1.8-2.4); PHOSPHOROUS 3.1 mg/dL (2.5-4.9); POTASSIUM SERUM 3.2 mmol/L (3.5-5.1)
--- NOTE | 2019-07-31 08:30 | NUR ---
PATIENT RECEIVED ORDERS FOR CT ANGIO OF HEAD AND NECK. PATIENT FOUND TO HAVE DISCONTINUED IV HIMSELF. IV CATHETER IS INTACT. IV 20G HAS BEEN INSERTED IN RFA. IV SITE IS CDI. CONFIRMED WITH CT THAT IV IS PATENT.
[2019-07-31 09:11] VITALS: BP 139/67
--- NOTE | 2019-07-31 11:12 | NUR ---
ECHO PENDING, PT THROWING UP.
[2019-07-31 12:39] VITALS: BP 144/67
--- NOTE | 2019-07-31 13:45 | NUR ---
PAGED DR. BARNES PERTAINING TO PATIENT'S LEFT EYE PAIN. NO OTHER NEUROLOGICAL SYMPTOMS PRESENT. MD ORDERED ARTIFICIAL EYE DROPS. NO FURTHER ORDERS AT THIS TIME
--- NOTE | 2019-07-31 14:22 | NUR ---
Bedside swallow evaluation completed. Pt is alert and verbally responsive. Provided trials of Puree diet, Honey Thick and Ringoes Thick liquids. Pt tolerated all trialed textures well. No s/s of aspiration noted. No trials of MS diet and thin liquids provided due to pt c/o nausea and further trials terminated.Provide Puree diet and Ringoes Thick liquids. Aspiration precautions. BIOTECHNICIAN to follow up for potential diet advance. Informed TONYA Hayes.
--- NOTE | 2019-07-31 15:14 | NUR ---
PTT WAS 54.8. PER HEPARIN PROTOCOL, NO CHANGE IS NEEDED. ORDERED ANOTHER PTT WHICH WILL BE DRAWN IN 4 HOURS. WILL CONTINUE TO MONITOR.
[2019-07-31 16:34] VITALS: BP 152/82
--- NOTE | 2019-07-31 17:44 | NUR ---
PATIENT IS A&OX4, FOLLOWS COMMANDS AND COOPERATES WELL. PATIENT DENIES ANY LEFT EYE PAIN AND HEADACHE. PATIENT STATES ABD PAIN IS LESS THAN THE START OF THE SHIFT. ABD PAIN IS TOLERABLE AFTER EATING DINNER. PATIENT DENIES ANY DISCOMFORT OR ANY NEUROLOGICAL SYMPTOMS OF A TIA. ALL QUESTIONS AND CONCERNS HAVE BEEN ADDRESSED. WILL CONTINUE TO MONITOR.
--- NOTE | 2019-07-31 17:56 | NUR ---
ECHOCARDIOGRAM COMPLETED.
--- NOTE | 2019-07-31 19:59 | NUR ---
SHIFT REASSESSMENT DONE.PATIENT ALERT AND ORIENTED,SLOW TO RESPOND,NEEDS ANTICIPATED.BREATHING EASY.GEN WEAKNESS,FALL PRECAUTION.NS AT 100 CC/ HOUR.RFA.TELE 29 SR NOW,WAS PREVIOUSLY AFIB.WAS ON HEPARIN DRIP,GOT DC.VOIDING.SKIN INTACT.NO PAIN C/O AT START OF SHIFT.CALL LIGHT IN REACH.
--- NOTE | 2019-07-31 20:30 | NUR ---
MARIA TERESA CALLED,SAYS PATIENT TELE OFF,ATTENDED AT ONCE,FOUND PATIENT WITH IV OUT,BLOOD ALL OVER THE FLOOR,SAYS HE DO NOT WANT TO WET HIMSELF,WENT TO BATHROOM WITHOUT CALLING THE NURSE.KEEP CLEAN AND DRY.PATIENT SAYS HE IS NOT CONFUSED,PATIENT TELE PUT,ALSO REMINDED TO CALL NEXT TIME,WILL PUT BED ALARM ON FOR SAFETY.
[2019-07-31 21:15] VITALS: BP 153/72
--- NOTE | 2019-07-31 22:01 | NUR ---
ALL SCHEDULED MEDS GIVEN SCHEDULED.PATIENT IVF NS AT 100 CC/ HOUR.BED ALSRM ON STILL.URINAL WITHIN REACH.
--- NOTE | 2019-07-31 23:20 | NUR ---
PATIENT DO NOT LIKE TO WEAR TELE,SAYS IT BOTHERS HIM,ERNESTO TRAMMELL CALLING DR DE LA ROSA AT THIS TIME.SAYS SHE WILL NOT DC IT BUT WILL LET DAY SHIFT KNOW.
--- NOTE | 2019-08-01 00:24 | NUR ---
TELE 29 RETURNED TO [facility] AT THIS TIME.
--- NOTE | 2019-08-01 01:07 | NUR ---
IVF NS AT 100 CC/ HOUR INFUSING.
--- NOTE | 2019-08-01 03:03 | NUR ---
PATIENT CONTINUETY OF CARE,GIVEN TO NIKKYALL QUESTIONS ANSWERED.PATIENT NEED A UA FOR LAB.
--- NOTE | 2019-08-01 03:40 | NUR ---
RECEIVED BEDSIDE REPORT FROM TONYA MONTEMAYOR. PT IN BED, SLEEPING ON HIS RIGHT SIDE. PER RN, PT REFUSES TO SLEEP W/ TELE MONITOR ON, DR BUSTAMANTE. NO ACUTE RESPIRATORY DISTRESS, PAIN, OR DISCOMFORT NOTED. SIDE RAILS UP X 2, BED IN LOW POSITION, CALL LIGHT WITHIN REACH. WILL CONTINUE TO MONITOR.
[2019-08-01 05:42] VITALS: BP 156/69
--- NOTE | 2019-08-01 06:48 | NUR ---
PT IN BED, SLEEPING ON HIS RIGHT SIDE. PT IN DEEP SLEEP, HARD TO AROUSE, RESPONDS IN GRUNTS. NO ACUTE RESPIRATORY DISTRESS, PAIN, OR DISCOMFORT. IV SITE TO RFA REMAINS CDI. SIDE RAILS UP X 2, BED IN LOW POSITION, CALL LIGHT WITHIN REACH. WILL ENDORSE TO AM SHIFT.
--- NOTE | 2019-08-01 07:16 | NUR ---
BEDSIDE REPORT GIVEN TO TONYA RANGEL.
--- NOTE | 2019-08-01 07:57 | NUR ---
PATIENT IS A&OX4, FOLLOWS COMMANDS AND COOPERATES WELL. REFUSES TELE MONITOR, BUT DENIES CHEST PAIN. PERIPHERAL PULSES PALPABLE W/ NO SIGNS OF EDEMA. LUNG SOUNDS CTA BILATERALLY, ON RA, O2 SAT 96%. NORMAOCTIVE BSX4. VOIDS WELL. DENIES GENERALIZED WEAKNESS. AMBULATORY. SKIN IS INTACT. DENIES GENERALIZED PAIN. IV SITE IS CDI. PATIENT IS CURRENTLY LYING ON RIGHT SIDE IN BED. WILL CONTINUE TO MONITOR.
[2019-08-01 08:41] VITALS: BP 104/59
[2019-08-01] MEDS ORDERED: LANTUS SOLOS100 U/M1 SC (11:36)
[2019-08-01] MEDS ORDERED: ELIQUIS5 MG PO (11:38)
[2019-08-01] MEDS ORDERED: TOP50 PO (11:39)
[2019-08-01] MEDS ORDERED: ARTOS OU (11:41)
[2019-08-01 11:51] VITALS: BP 104/59
[2019-08-01 12:08] VITALS: BP 142/69
[2019-08-01 12:43] LABS: microscopic required? YES; urine erythrocyte NEGATIVE (NEGATIVE)
== END 2019-08-01 13:49 | disposition home or self-care (01) | DRG 69 ==
LOC: ED 18:57 → DU 22:23
PROVIDERS: Emergency Medicine; ADMIT Internal Medicine
DX: G45.9 Transient cerebral ischemic attack, unspecified (principal); N17.0 Acute kidney failure with tubular necrosis; D68.69 Other thrombophilia; I48.91 Unspecified atrial fibrillation; E11.65 Type 2 diabetes mellitus with hyperglycemia; E86.0 Dehydration; E87.6 Hypokalemia; E83.41 Hypermagnesemia; D72.829 Elevated white blood cell count, unspecified; E78.5 Hyperlipidemia, unspecified; I10 Essential (primary) hypertension; Z68.34 Body mass index [BMI] 34.0-34.9, adult; Z79.84 Long term (current) use of oral hypoglycemic drugs; Z86.73 Personal history of transient ischemic attack (TIA), and cerebral infarction without residual deficits; Z90.49 Acquired absence of other specified parts of digestive tract; Z82.49 Family history of ischemic heart disease and other diseases of the circulatory system; E78.00 Pure hypercholesterolemia, unspecified
CPT/HCPCS: 36600; 82962; 83880; 84439; 92610-GN; 97116-GP; G0378; J1644; J1815; J2405; J3490; J7030; J7040; Q0092; Q9967

== ENCOUNTER → 2019-11-13 | Outpatient (CLI) | payer OTHER ==
[~2019-11-13] MED LIST changes: +ARTOS OU; +ASPIRIN ADULT L81 M5; +BENAZEPRIL HYDR40 M1; +ELIQUIS5 MG PO; +LASIX20 MG; +MAGNESIUM OXID400 MG; +METOPROLOL SUCC50 M2
[2019-11-13 10:53] LABS: BASOPHIL % 0.4 % (0-2); PLATELET COUNT 237 x10^3mcL (130-400)
[2019-11-13 11:03] LABS: URIC ACID 4.9 mg/dL (3.5-7.2)
[2019-11-13 11:25] LABS: ALBUMIN 3.5 g/dL (3.4-5.0); ALKALINE PHOSPHATASE 76 U/L (46-116); ALT/SGPT 33 U/L (16-63); AST/SGOT 20 U/L (15-37); BILIRUBIN TOTAL 0.3 mg/dL (0.20-1.00); CALCIUM 9.1 mg/dL (8.5-10.1); CARBON DIOXIDE 32.8 mmol/L (21-32); CHLORIDE SERUM 102 mmol/L (98-107); GFR1 > 60 mL/min; GLUCOSE SERUM 148 mg/dL (74-106); POTASSIUM SERUM 3.8 mmol/L (3.5-5.1); SODIUM SERUM 144 mmol/L (136-145); TOTAL PROTEIN, SERUM 6.5 g/dL (6.4-8.2); TRIGLYCERIDES 106 mg/dL (<150)
[2019-11-13 11:26] LABS: CHOLESTEROL 111 mg/dL (<200); CHOLESTEROL/HDL RATIO 3.4; HDL CHOLESTEROL 33 mg/dL (40-60)
== END | disposition home or self-care (01) ==
LOC: LB 10:23
DX: E11.65 Type 2 diabetes mellitus with hyperglycemia (principal); E78.5 Hyperlipidemia, unspecified; E55.9 Vitamin D deficiency, unspecified
CPT/HCPCS: 84153

== ENCOUNTER → 2020-01-27 | Outpatient (CLI) | payer OTHER ==
[2020-01-27 09:26] LABS: ALBUMIN 3.5 g/dL (3.4-5.0); ALKALINE PHOSPHATASE 69 U/L (46-116); ALT/SGPT 30 U/L (16-63); AST/SGOT 17 U/L (15-37); BILIRUBIN DIRECT 0.12 mg/dL (0.0-0.2); BILIRUBIN TOTAL 0.33 mg/dL (0.20-1.00); CALCIUM 9.5 mg/dL (8.5-10.1); CARBON DIOXIDE 32.8 mmol/L (21-32); CHLORIDE SERUM 106 mmol/L (98-107); CREATININE SERUM 1.1 mg/dL (0.7-1.3); GFR1 > 60 mL/min; GLUCOSE SERUM 88 mg/dL (74-106); POTASSIUM SERUM 3.9 mmol/L (3.5-5.1); SODIUM SERUM 144 mmol/L (136-145); TOTAL PROTEIN, SERUM 6.9 g/dL (6.4-8.2); URIC ACID 6.4 mg/dL (3.5-7.2)
[2020-01-27 09:29] LABS: FREE T4 0.91 ng/dL (0.76-1.46); FREE THYROXINE INDEX 2.3 ug/dL (1.4-4.5); T4(THYROXINE) 7.1 ug/dL (4.7-13.3)
[2020-01-27 10:31] LABS: T3 TOTAL 1.23 ng/mL
== END | disposition home or self-care (01) ==
LOC: LB 08:33
DX: E11.29 Type 2 diabetes mellitus with other diabetic kidney complication (principal); I10 Essential (primary) hypertension
CPT/HCPCS: 84439

== ENCOUNTER 2020-10-03 19:51 | Emergency (ER) | payer OTHER ==
[~2020-10-03] VITALS: Ht 182.9 cm; Wt 113.4 kg
[2020-10-03 20:12] VITALS: Ht 182.9 cm; Wt 113.4 kg
[2020-10-03 22:37] LABS: BASOPHIL % 0.6 % (0.2-1.5); PLATELET COUNT 218 x10^3mcL (152-348); RED CELL DISTRIBUTION WIDTH 14.1 % (12.1-16.2)
[2020-10-03 23:02] LABS: CALCIUM 9.1 mg/dL (8.5-10.1); CARBON DIOXIDE 30.7 mmol/L (21-32); CHLORIDE SERUM 100 mmol/L (98-107); CREATININE SERUM 1.2 mg/dL (0.7-1.3); GFR1 > 60 mL/min; GLUCOSE SERUM 382 mg/dL (74-106); POTASSIUM SERUM 4.1 mmol/L (3.5-5.1); SODIUM SERUM 137 mmol/L (136-145)
[2020-10-03 23:12] LABS: ALBUMIN 3.3 g/dL (3.4-5.0); ALKALINE PHOSPHATASE 91 U/L (46-116); ALT/SGPT 38 U/L (16-63); AST/SGOT 19 U/L (15-37); BILIRUBIN TOTAL 0.29 mg/dL (0.20-1.00); TOTAL PROTEIN, SERUM 6.8 g/dL (6.4-8.2)
[2020-10-04] MEDS ORDERED: DRAMAMINE LESS25 MG PO (00:03)
[2020-10-04 00:31] VITALS: BP 159/88
== END 2020-10-04 00:32 | disposition home or self-care (01) ==
LOC: ED 19:51
PROVIDERS: Emergency Medicine
DX: R42 Dizziness and giddiness (principal); E16.2 Hypoglycemia, unspecified; I10 Essential (primary) hypertension; E11.9 Type 2 diabetes mellitus without complications; I48.91 Unspecified atrial fibrillation